=== PATIENT | male | born 1985 | race Two or more races ===

== ENCOUNTER 2024-04-16 16:35 | Emergency (ER) | payer BC, SELFPAY ==
[2024-04-16 16:38] VITALS: BP 156/87
[2024-04-16 16:54] VITALS: BP 137/91
[2024-04-16 17:01] VITALS: BMI 23.5
[2024-04-16 17:19] LABS: % Basophils 0.4 % (0-2); % Eosinophils 2.7 % (0-6); % Immature Granulocytes 0.5 % (0-0.5); % Lymphocytes 25.5 % (20.5-51.1); % Monocytes 11.1 % (1.7-9.3); % Neutrophils 59.8 % (42.2-75.2); Absolute Eosinophils 0.3 10^3/uL (0-0.7); Absolute Immature Granulocytes 0.1 10^3/uL (0-0.05); Absolute Lymphocytes 2.6 10^3/uL (1.2-3.4); Absolute Monocytes 1.1 10^3/uL (0.1-0.6); Hematocrit 40.3 % (39.0-52.0); Hemoglobin 12.8 g/dL (13.0-18.0); Mean Corp Hgb Conc. 31.8 g/dL (33.0-37.0); Mean Corpuscular Hgb 23.7 pg (27.0-31.0); Mean Corpuscular Volume 74.6 fL (80.0-94.0); Nucleated Red Blood Cells % 0 % (-); Platelet Count 268 10^3/uL (130-400); Red Cell Dist. Width 14.5 % (11.5-14.5); White Blood Cell Count 10.1 10^3/uL (4.8-10.8)
--- NOTE | 2024-04-16 17:37 | ED.GENMED ---
History of Present Illness
General
Chief Complaint: Abdominal Pain
Time Seen by Provider: 04/16/24 17:15
History of Present Illness
History of Present Illness:
38-year-old male without significant past medical history presenting for abdominal pain for the past 5 days. Patient also reports fevers. Denies nausea, vomiting, diarrhea. Denies any history of abdominal surgeries in the past. Denies cough or
shortness of breath. Has been taking Tylenol and Motrin, however symptoms have been persisting. Denies urinary complaints. Denies additional acute medical complaints
Phy Exam
Physical Exam
Physical Exam:
General: Well-appearing, no clinical signs of dehydration, nontoxic and in no acute distress
HEENT: protecting airway
Neck: appears supple
CV: Normal heart rate, regular rhythm
Resp: No accessory muscle use, no increased work of breathing
Abd: Soft and non-distended, mild tenderness to the left upper and mid abdomen without rebound or guarding
Extremities: No deformities, no swelling
Neuro: alert, no focal neurologic deficit
: deferred
Rectal: deferred
Psych: Normal affect
Skin: Intact
Course
Orders/Labs/Results
Orders:
Orders
04/16/24 17:09
CMP [Comprehensive Metabolic Panel] Urgent
Complete Blood Count/With Diff Urgent
Lipase Urgent
04/16/24 17:27
Ketorolac [Toradol] 15 mg IV NOW STA
04/16/24 17:28
CT Abd/pelvis W Iv Cont Urgent
Comment:
Reason For Exam: L-sided abd pain
04/16/24 17:51
Urinalysis Reflex To Culture Urgent
Date Specimen was Collected: 04/16/24
Time Specimen was Collected: 17:46
Urine Microscopic Reflex Cult Urgent
04/16/24 19:47
Add On- LAB Urgent
Tests Added?: lipase
Abnormal Lab Results
04/16/24 04/16/24
17:09 17:51
Hgb 12.8 L g/dL
(13.0-18.0)
MCV 74.6 L fL
(80.0-94.0)
MCH 23.7 L pg
(27.0-31.0)
MCHC 31.8 L g/dL
(33.0-37.0)
Abs Immat Gran (auto) 0.1 H 10^3/uL
(0-0.05)
Absolute Monos (auto) 1.1 H 10^3/uL
(0.1-0.6)
Monocytes % 11.1 H %
(1.7-9.3)
Glucose 106 H mg/dl
(70-99)
Ur Occult Blood Reflex 4+ A
(Negative)
Urine RBC 11-15 A /HPF
(0-2)
Urine Bacteria (Reflex) Few A
(Negative)
Urine Albumin (Reflex) 1+ A
(Neg - Trace)
04/16/24 17:09
04/16/24 17:09
Vital Signs
Initial and Last Documented VS:
Initial Vital Signs
Temp Pulse Resp BP Pulse Ox
98.1 F 92 16 156/87 97
04/16/24 16:38 04/16/24 16:38 04/16/24 16:38 04/16/24 16:38 04/16/24 16:38
Last Documented Vital Signs
Temp Pulse Resp BP Pulse Ox
98.1 F 92 16 156/87 100
04/16/24 16:38 04/16/24 16:38 04/16/24 16:38 04/16/24 16:38 04/16/24 17:02
MDM/Problems Addressed
MDM/Problems Addressed:
38-year-old male with out significant past medical history presenting for abdominal pain with fever. Vital signs on arrival are normal.
On exam patient is resting comfortably, no acute distress, nontoxic. Mild generalized tenderness to the left side of the abdomen, upper and mid abdomen. No rebound or guarding. Given duration of symptoms and reported low-grade fevers, suspect
possible diverticulitis. Viral syndrome is also a consideration. Patient denying any urinary complaints, no flank pain, lower suspicion for kidney stone. No right upper quadrant tenderness, without concern for cholecystitis. No right lower
quadrant tenderness without concern for appendicitis. Abdomen is soft and nondistended, without concern for obstruction. Plan for laboratory analysis and CT imaging. Toradol administered for pain
20:30 -Labs unremarkable. CT without acute significant pathology. There is mention of possible gastric ulcer. Lipase within normal limits, without concern for pancreatitis. Patient remained stable on reassessment. Feel stable for discharge with
outpatient follow-up and GI follow-up. Will start patient on an antiacid. Return precautions discussed and patient verbalized understanding
*Critical Care Note
Total Time (30-74mins, 75-104mins- exclusive of procedures): Not Applicable
ED Attending Note
-
Portions of this chart may have been created with voice recognition software.� Occasional wrong word or��sound alike� substitutions may have occurred due to the inherent limitations of voice recognition software.
Discharge Plan
Departure
Referrals:
Brent Farr MD [Family Provider] -
Interventions
Interventions:
*Risk Screen - Suicide Last Done: 04/16/24 16:40
*General Assessment Last Done: 04/16/24 17:02
*Neglect/Abuse Screening Last Done: 04/16/24 16:40
ED- Fall Risk Assessment Last Done: 04/16/24 17:02
*ED COVID-19 Vaccine History Last Done: 04/16/24 17:02
EL-Ridwlf-Vhnlqksens Assessment Last Done: 04/16/24 17:02
Discharge Date and Time
Print Language: CANADIAN
[2024-04-16 17:38] LABS: ALT (SGPT) 41 U/L (0-50); AST (SGOT) 34 U/L (17-59); Albumin 4.5 g/dl (3.5-5.0); Alkaline Phosphatase 59 U/L (38-126); Blood Urea Nitrogen 13 mg/dl (9-20); Calcium 9.3 mg/dl (8.4-10.2); Carbon Dioxide 26 mmol/L (22-30); Chloride 102 mmol/L (98-107); Estimated Creatinine Clearance 93 ml/min; Glucose 106 mg/dl (70-99); Potassium 3.7 mmol/L (3.5-5.1); Sodium 141 mmol/L (135-145); Total Bilirubin 1.1 mg/dl (0.2-1.3); Total Protein 7.1 g/dl (6.3-8.2); eGFR > 60.00
[2024-04-16] MEDS: TORADOL 15 MG IV (17:48)
[2024-04-16 18:00] VITALS: BP 122/61
[2024-04-16 18:06] LABS: Urine Albumin 1+ (Neg - Trace); Urine Bilirubin Negative (Negative); Urine Character Clear (Clear); Urine Color Yellow; Urine Glucose Negative (Negative); Urine Ketone Negative (Negative); Urine Leukocyte Negative (Negative); Urine Nitrite Negative (Negative); Urine Occult Blood 4+ (Negative); Urine Specific Gravity 1.015 (<1.030); Urine Urobilinogen Negative (Neg - 1+)
[2024-04-16 18:13] LABS: Urine Squamous Cell 0-2 /LPF (Few)
[2024-04-16 18:14] LABS: Urine Bacteria Few (Negative); Urine White Cell 0-2 /HPF (0-5)
[2024-04-16 19:00] VITALS: BP 119/55
[2024-04-16 20:19] LABS: Lipase 100 U/L (23-300)
== END 2024-04-16 20:53 | disposition home or self-care (01) ==
LOC: EMR 16:35
PROVIDERS: Emergency Medicine; EMERGENCY PHYSICIAN Student in an Organized Health Care Education/Training Program; FAMILY PHYSICIAN Internal Medicine
DX: R10.9 Unspecified abdominal pain (principal); R50.9 Fever, unspecified
CPT/HCPCS: 99284; 96374; 74177; 80053; 81003; 81015; 83690; 85025; Q9967